=== PATIENT | female | born 1965 | race Caucasian/White ===

== ENCOUNTER 2017-12-17 17:01 | Emergency (ER) | payer MEDICAID ==
[2017-12-17 17:53] VITALS: BMI 29.6
[2017-12-17 17:58] VITALS: TEMP 97.9
[2017-12-17] MEDS ORDERED: Enoxaparin 40 mg Syringe SC STA (19:01)
[2017-12-17] MEDS ORDERED: Enoxaparin 80 mg Syringe ONE (19:12)
--- NOTE | 2017-12-17 19:13 | C.PDOC ---
History Of Present Illness 52 y/o female presents to the ED with c/o right leg pain for 8 days. Patient states she was walking when she stepped the wrong way and felt a sharp pain in her right calf. Since then, the pain has persisted and is worse with movement. Patient was evaluated by her PMD who instructed her to come to the ED for an Ultrasound. She denies chest pain, shortness of breath, changes in sensation, recent travel. 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 ) History/Exam Limitations: language barrier Onset/Duration Of Symptoms: Days (8) Current Symptoms Are (Timing): Still Present Recent travel outside of the [place]: No Additional History Per: Patient - Ankle/Foot Description Of Injury: denies: Fell, Struck With Object, Struck Against Object Past Medical History Reviewed: Historical Data, Nursing Documentation, Vital Signs Vital Signs: Last Vital Signs Temp 97.9 F 12/17/17 17:55 Pulse 81 12/17/17 19:29 Resp 16 12/17/17 19:29 BP 124/85 12/17/17 19:29 Pulse Ox 99 12/17/17 21:09 - Medical History PMH: No Chronic Diseases Denies: Diabetes Surgical History: No Surg Hx Family History: States: Unknown Family Hx - Social History Hx Alcohol Use: No Hx Substance Use: No - Immunization History Hx Tetanus Toxoid Vaccination: No Hx Influenza Vaccination: No Hx Pneumococcal Vaccination: No Review Of Systems Cardiovascular: Negative for: Chest Pain Respiratory: Negative for: Shortness of Breath Musculoskeletal: Positive for: Other (right leg pain ) Neurological: Negative for: Weakness, Numbness Physical Exam - Physical Exam Appears: Non-toxic, No Acute Distress Skin: Normal Color, Warm, Dry Head: Atraumatic, Normacephalic Eye(s): bilateral: Normal Inspection, EOMI Oral Mucosa: Moist Neck: Supple Chest: Symmetrical, No Deformity, No Tenderness Cardiovascular: Rhythm Regular Respiratory: Normal Breath Sounds, No Rales, No Rhonchi, No Wheezing Extremity: Normal ROM, Calf Tenderness (right), Capillary Refill (less than 2 seconds ), No Swelling, Other (nontender varicose veins noted in right lower extremity. no erythema ) Extremity: Bilateral: Atraumatic Pulses: Left Dorsalis Pedis: Normal, Right Dorsalis Pedis: Normal Neurological/Psych: Oriented x3, Normal Speech, Normal Cognition, Normal Sensation Gait: Steady ED Course And Treatment O2 Sat by Pulse Oximetry: 99 (on RA) Pulse Ox Interpretation: Normal Progress Note: Vascular study is not available. Pt will receive Lovenox and return tomorrow for vascular study. Patient verbalizes understanding to return to the ED tomorrow in order to undergo vascular study. Disposition - Disposition Disposition: HOME/ ROUTINE Disposition Time: 19:11 Condition: STABLE Additional Instructions: Return to ER tomorrow at 9am for vascular study. Regrese a la clarita de emergencias maana a las 9 a.m. para estudio vascular. Instructions: Leg Pain (ED) Forms: [employer] (Bulgarian) Print Language: KAZAKH - Clinical Impression Clinical Impression: Muscle strain of lower leg - PA / CLINICAL DOCUMENTATION MANAGER / Resident Statement MD/DO has reviewed & agrees with the documentation as recorded. - Scribe Statement The provider has reviewed the documentation as recorded by the Scribe (Yoli Arreola) All medical record entries made by the Scribe were at my direction and personally dictated by me. I have reviewed the chart and agree that the record accurately reflects my personal performance of the history, physical exam, medical decision making, and the department course for this patient. I have also personally directed, reviewed, and agree with the discharge instructions and disposition.
[2017-12-17 19:32] VITALS: BP 124/85; PULSE 81; RESP 16
[2017-12-17 21:05] VITALS: O2SAT 99
== END 2017-12-17 19:29 | disposition home or self-care (01) ==
LOC: C.ER 17:01
DX: S86.911A Strain of unspecified muscle(s) and tendon(s) at lower leg level, right leg, initial encounter (principal); X58.XXXA Exposure to other specified factors, initial encounter; Y93.01 Activity, walking, marching and hiking
CPT/HCPCS: 96372; 99283; J1650

== ENCOUNTER 2017-12-18 08:33 | Emergency (ER) | payer MEDICAID ==
[2017-12-18 08:34] VITALS: BMI 29.6
[2017-12-18 08:38] VITALS: TEMP 97.6; O2SAT 98
--- NOTE | 2017-12-18 10:35 | C.PDOC ---
History Of Present Illness 52 yr old female refereed to ER for a dopplar. Patient was seen on 12/17 for right leg/calf pain for the past 8 days and was told to come back for a dopplar and given Lovenox as precautionary measures. Patient denies chest pain, SOB, nausea, vomiting, weakness or numbness. Time Seen by Provider: 12/18/17 09:18 Chief Complaint (Nursing): Lower Extremity Problem/Injury History Per: Patient History/Exam Limitations: no limitations Onset/Duration Of Symptoms: Days (8 days) Past Medical History Reviewed: Historical Data, Nursing Documentation, Vital Signs Vital Signs: Last Vital Signs Temp 97.6 F 12/18/17 08:35 Pulse 72 12/18/17 08:35 Resp 18 12/18/17 08:35 BP 143/84 12/18/17 08:35 Pulse Ox 98 12/18/17 10:46 Family History: States: No Known Family Hx - Social History Hx Alcohol Use: No Hx Substance Use: No - Immunization History Hx Tetanus Toxoid Vaccination: No Hx Influenza Vaccination: No Hx Pneumococcal Vaccination: No Review Of Systems Except As Marked, All Systems Reviewed And Found Negative. Cardiovascular: Negative for: Chest Pain Respiratory: Negative for: Shortness of Breath Gastrointestinal: Negative for: Nausea, Vomiting Musculoskeletal: Positive for: Leg Pain (right leg/calf pain) Neurological: Negative for: Weakness, Numbness Physical Exam - Physical Exam Appears: Non-toxic, No Acute Distress Skin: Warm, Dry, No Rash Oral Mucosa: Moist Lips: Normal Appearing Chest: Symmetrical, No Tenderness Respiratory: Normal Breath Sounds, No Rales, No Rhonchi, No Stridor, No Wheezing Extremity: Normal ROM, No Calf Tenderness, No Swelling Extremity: Bilateral: Normal Color And Temperature, Normal ROM Neurological/Psych: Oriented x3, Normal Speech, Normal Motor, Normal Sensation ED Course And Treatment O2 Sat by Pulse Oximetry: 98 (RA) Pulse Ox Interpretation: Normal - Other Rad VENOUS RLE X-Ray: Viewed By Me Interpretation: PER TUB OPERATOR REPORT: NEG Medical Decision Making Medical Decision Making: PLAN: * Venous Duplex * Lovenox SC Disposition Counseled Patient/Family Regarding: Diagnosis, Need For Followup - Disposition Referrals: YOUR,PMD [Other] Disposition: HOME/ ROUTINE Disposition Time: 10:33 Condition: GOOD Instructions: Leg Pain (ED) Forms: [employer] (Pashto) - Clinical Impression Clinical Impression: Leg pain - Scribe Statement The provider has reviewed the documentation as recorded by the Piliibe Kinza Walters Provider Attestation: All medical record entries made by the Piliibe were at my direction and personally dictated by me. I have reviewed the chart and agree that the record accurately reflects my personal performance of the history, physical exam, medical decision making, and the department course for this patient. I have also personally directed, reviewed, and agree with the discharge instructions and disposition.
[2017-12-18 10:47] VITALS: BP 125/78; PULSE 84; RESP 16
--- NOTE | 2017-12-20 10:30 | VASCLAB ---
PROCEDURE: Right Lower Extremity Venous Duplex Exam. HISTORY: pain Right calf pain, swelling PRIORS: None. TECHNIQUE: Right common femoral, femoral, popliteal and posterior tibial, peroneal and great saphenous veins were evaluated. Flow was assessed with color Doppler, compressibility, assessment of phasic flow and augmentation response. Report prepared by Sher Alejandra, RVT FINDINGS: RIGHT: 1. Common Femoral Vein: 1.1. Compressibility - Fully compressible: Thrombus - None: Flow - Phasic: Augmentation -Normal: Reflux - . 2. Femoral Vein: 2.1. Compressibility - Fully compressible: Thrombus - None: Flow - Phasic: Augmentation -Normal: Reflux - . 3. Popliteal Vein: 3.1. Compressibility - Fully compressible: Thrombus - None: Flow - Phasic: Augmentation -Normal: Reflux - . 4. Posterior Tibial Vein: 4.1. Compressibility - Fully compressible: Thrombus - None: Flow - : Augmentation -: Reflux - . 5. Peroneal Vein: 5.1. Compressibility - Fully compressible: Thrombus - None: Flow - : Augmentation -: Reflux - . 6. Great Saphenous Vein: 6.1. Compressibility - Fully compressible: Thrombus -None: Flow - Phasic: Augmentation - : Reflux - . OTHER FINDINGS: IMPRESSION: No evidence of deep or superficial vein thrombosis of the right lower extremity. Normal venous flow noted in the left common femoral vein.
== END 2017-12-18 10:46 | disposition home or self-care (01) ==
LOC: C.ER 08:33
DX: M79.661 Pain in right lower leg (principal)